=== PATIENT | female | born 1970 | race Caucasian/White ===

== ENCOUNTER 2025-01-13 15:34 | Outpatient (OUT) | payer BC, SELFPAY ==
--- NOTE | 2025-01-13 15:44 | MM_ITS ---
Patient Name: PILLO GONZALEZ MR#: [id number] : 1970 Exam Date: 01/13/2025 Ordering Doctor: DR Kala Bryant M.D. RADIOLOGY REPORT PROCEDURE: MM TOMOSYNTHESIS SCREENING BI COMPARISON: MG MAMM SCREEN 3D LISA CAD, 01/21/2023. MG MAMM SCREEN LISA W CAD, 01/16/2021. MG MAMM SCREEN LISA W CAD, 09/06/2019. MG MAMM SCREEN LISA W CAD, 10/03/2015. INDICATIONS: Screening Calculator Name NCI Breast Cancer Risk Assessment Tool 5 Year Breast Cancer Risk 2.30% Lifetime Breast Cancer Risk 15.10% Personal Breast Cancer No Personal Ovarian Cancer No Treatments None Family Cancers Mother with breast cancer at age 68; Father with pancreas cancer at age 73. LOCATION: [facility] BREAST COMPOSITION: There are scattered areas of fibroglandular density. FINDINGS: DIAGNOSTIC CATEGORY 1--NEGATIVE. LEFT BREAST: No significant suspicious finding. RIGHT BREAST: No significant suspicious finding. RECOMMENDATIONS: ROUTINE MAMMOGRAM AND CLINICAL EVALUATION IN 12 MONTHS. PLEASE NOTE: A NORMAL MAMMOGRAM DOES NOT EXCLUDE THE POSSIBILITY OF BREAST CANCER. A CLINICALLY SUSPICIOUS PALPABLE LUMP SHOULD BE BIOPSIED. Dictated by: Chico Thacker DO on 01/13/2025 at 16:25 Approved by: Chioc Thacker DO on 01/13/2025 at 16:27
== END 2025-01-13 15:35 | disposition home or self-care (01) ==
LOC: MAMMO 15:34
PROVIDERS: PCP Family Medicine; Visit Provider Family Medicine
DX: Z12.31 Encounter for screening mammogram for malignant neoplasm of breast (principal); Z80.3 Family history of malignant neoplasm of breast; Z80.8 Family history of malignant neoplasm of other organs or systems
CPT/HCPCS: 77063; 77067